=== PATIENT | female | born 1960 | race Caucasian/White ===

== ENCOUNTER → 2024-11-19 09:09 | Outpatient (CLI) | payer OTHER, SELFPAY ==
[2024-11-19 10:14] LABS: COVID-19 CEPHEID 4-PLEX PCR Negative (Negative); Influenza A - CEPHEID Flu A NEGATIVE (NEGATIVE); Influenza B - CEPHEID Flu B NEGATIVE (NEGATIVE); Respiratory Syncytial Virus Negative (Negative)
== END ==
PROVIDERS: Visit Provider Nurse Practitioner Family
DX: J02.9 Acute pharyngitis, unspecified (principal); R09.81 Nasal congestion
CPT/HCPCS: 0241U